=== PATIENT | female | born 1965 | race Caucasian/White ===

== ENCOUNTER 2018-07-07 11:13 | Emergency (ER) | payer BC, OTHER ==
[~2018-07-07] VITALS: Ht 162.6 cm; Wt 115.0 kg
[~2018-07-07 11:13] MED LIST: ALBU8.5H4 IH; BUSP10TA11 PO; DULO-31 PO; EST1T PO; GABA-338 PO; NORCO10T PO
[2018-07-07 11:46] LABS: BASOPHILS # (AUTO) 0.1 X10'3 (0-0.2); BASOPHILS % (AUTO) 1.1 % (0-1); EOSINOPHILS # (AUTO) 0.2 X10'3 (0-0.9); EOSINOPHILS % (AUTO) 2.4 % (0-6); HEMATOCRIT 40.6 % (35.0-45.0); LYMPHOCYTES # (AUTO) 3.1 X10'3 (1.1-4.8); LYMPHOCYTES % (AUTO) 41.2 % (21-51); MEAN CORPUSCULAR HEMOGLOBIN 32.4 PG (27.0-31.0); MEAN CORPUSCULAR HGB CONC 34.5 % (33.0-36.5); MEAN CORPUSCULAR VOLUME 93.8 FL (78-98); MEAN PLATELET VOLUME 7.6 FL (7.4-10.4); MONOCYTES # (AUTO) 0.5 X10'3 (0-0.9); MONOCYTES % (AUTO) 6.2 % (2-12); NEUTROPHILS # (AUTO) 3.7 X10'3 (1.8-7.7); NEUTROPHILS % (AUTO) 49.1 % (42-75); PLATELET COUNT 314 X10'3 (140-440); RED BLOOD COUNT 4.33 X10'6 (4.20-5.60); RED CELL DISTRIBUTION WIDTH 12.6 % (11.5-14.5); WHITE BLOOD COUNT 7.5 X10'3 (4.5-11.0)
[2018-07-07 11:57] LABS: PARTIAL THROMBOPLASTIN TIME 25 SECONDS (22-32)
[2018-07-07 12:02] LABS: ALANINE AMINOTRANSFERASE 26 U/L (12-78); ALBUMIN/GLOBULIN RATIO 1.2 (1.1-1.5); ALKALINE PHOSPHATASE 65 IU/L (46-116); ANION GAP 11 (8-16); ASPARTATE AMINO TRANSFERASE 25 U/L (10-37); BILIRUBIN,TOTAL 0.2 MG/DL (0.1-1.0); BLOOD UREA NITROGEN 13 MG/DL (7-18); BUN/CREATININE RATIO 11.3 (6.6-38.0); CALCIUM 9.2 MG/DL (8.5-10.1); CHLORIDE 104 MMOL/L (99-107); CREATININE 1.15 MG/DL (0.40-0.90); GLUCOSE 97 MG/DL (70-104); SODIUM 141 MMOL/L (135-145); TOTAL CARBON DIOXIDE 25.6 MMOL/L (24-32); TOTAL PROTEIN 7.4 G/DL (6.4-8.2); eGFR 49 ML/MIN
[2018-07-07 12:46] VITALS: BP 103/63
== END 2018-07-07 12:53 | disposition home or self-care (01) ==
LOC: ER 11:14
DX: R00.2 Palpitations (principal); M19.90 Unspecified osteoarthritis, unspecified site; G89.29 Other chronic pain; Z90.710 Acquired absence of both cervix and uterus; Z98.890 Other specified postprocedural states; Z88.5 Allergy status to narcotic agent; Z88.6 Allergy status to analgesic agent; Z88.1 Allergy status to other antibiotic agents; Z79.899 Other long term (current) drug therapy
CPT/HCPCS: 36415; 71045; 80053; 84484; 85025; 85610; 85730; 93005; 99285

== ENCOUNTER 2020-12-20 12:17 | Emergency (ER) | payer BC, MEDICAID ==
[~2020-12-20] VITALS: Ht 162.6 cm; Wt 105.5 kg
[2020-12-20] MEDS ORDERED: LORazepam 1 MG tablet PO ONE (12:40)
[2020-12-20 13:14] LABS: BASOPHILS # (AUTO) 0.1 X10'3 (0-0.2); BASOPHILS % (AUTO) 1.3 % (0-1); EOSINOPHILS # (AUTO) 0.1 X10'3 (0-0.9); EOSINOPHILS % (AUTO) 2.3 % (0-6); LYMPHOCYTES # (AUTO) 2.2 X10'3 (1.1-4.8); LYMPHOCYTES % (AUTO) 37.4 % (21-51); MEAN CORPUSCULAR HEMOGLOBIN 32.1 PG (27.0-31.0); MEAN CORPUSCULAR HGB CONC 33.3 g/dL (33.0-36.5); MEAN CORPUSCULAR VOLUME 96.4 FL (78-98); MEAN PLATELET VOLUME 8.3 FL (7.4-10.4); MONOCYTES # (AUTO) 0.4 X10'3 (0-0.9); MONOCYTES % (AUTO) 7.7 % (2-12); NEUTROPHILS % (AUTO) 51.3 % (42-75); PLATELET COUNT 260 X10'3 (140-440); RED BLOOD COUNT 4.35 X10'6 (4.20-5.60); WHITE BLOOD COUNT 5.8 X10'3 (4.5-11.0)
[2020-12-20 13:26] LABS: ALANINE AMINOTRANSFERASE 19 U/L (12-78); ALBUMIN 3.8 G/DL (3.4-5.0); ALBUMIN/GLOBULIN RATIO 1.1 (1.1-1.5); ALKALINE PHOSPHATASE 65 IU/L (46-116); ANION GAP 7 (8-16); ASPARTATE AMINO TRANSFERASE 16 U/L (10-37); BILIRUBIN,TOTAL 0.4 MG/DL (0.1-1.0); BLOOD UREA NITROGEN 12 MG/DL (7-18); BUN/CREATININE RATIO 11.1 (6.6-38.0); CALCIUM 9.1 MG/DL (8.5-10.1); CHLORIDE 106 MMOL/L (99-107); CREATININE 1.08 MG/DL (0.40-0.90); GLUCOSE 89 MG/DL (70-104); POTASSIUM 4.1 MMOL/L (3.5-5.1); SODIUM 140 MMOL/L (135-145); TOTAL CARBON DIOXIDE 27.1 MMOL/L (24-32); TOTAL PROTEIN 7.2 G/DL (6.4-8.2); eGFR 53 ML/MIN
[2020-12-20 13:32] LABS: URINE HCG NEGATIVE (NEG)
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
[2020-12-20 13:41] LABS: ETHANOL < 0.010 GM/DL (0.0-0.010)
[2020-12-20 13:46] LABS: URINE AMPHETAMINE SCREEN NEGATIVE (Neg); URINE BARBITUATE SCREEN NEGATIVE (Neg); URINE BENZODIAZEPINES SCREEN NEGATIVE (Neg); URINE CANNABINOID SCREEN NEGATIVE (Neg); URINE COCAINE SCREEN NEGATIVE (Neg); URINE METHADONE SCREEN NEGATIVE (Neg); URINE OPIATE SCREEN POSITIVE (Neg); URINE PHENCYCLIDINE SCREEN NEGATIVE (Neg)
[2020-12-20 13:49] LABS: CLARITY,URINE CLEAR (Clear); COLOR,URINE STRAW (Yellow); GLUCOSE, URINE NEGATIVE (Neg); KETONES,URINE NEGATIVE (Neg); LEUKOCYTE ESTERASE ,URINE NEGATIVE (Neg); NITRITES, URINE NEGATIVE (Neg); OCCULT BLOOD,URINE NEGATIVE (Neg); PROTEIN,URINE NEGATIVE (Neg)
[2020-12-20 13:55] LABS: UA COLLECTION TYPE CLN CATCH MIDSTREAM
[2020-12-20] MEDS ORDERED: BACL-11 PO (18:42)
[2020-12-20] MEDS ORDERED: TOP100T PO (18:42)
[2020-12-20] MEDS ORDERED: QUET25TA PO (18:42)
[2020-12-20] MEDS ORDERED: BUS15T PO (18:42)
[2020-12-20] MEDS ORDERED: HYDR-3972 PO (18:42)
[2020-12-20] MEDS ORDERED: GABA-530 PO (18:42)
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
[2020-12-20] MEDS ORDERED: nicotine 21mg patch - 24 hr TD ONE (19:15)
--- NOTE | 2020-12-20 19:22 | NUR ---
PT states she has a HX of Bipolar, PTSD, depression, borderline personality d/o, and anxiety. She has a HX of suidide attempts, the last one being in Addendum: 12/20/20 at 1923 by RUBIO 2009. She has had suicidal thoughts on and off for years.
[2020-12-20] MEDS: HYDROcodone/acetaminophen 10/325mg tab PO PRN (19:38)
[2020-12-20] MEDS ORDERED: busPIRone 15mg tablet PO SCH (20:00)
[2020-12-20] MEDS: gabapentin 100mg capsule PO SCH (20:31)
[2020-12-20] MEDS: busPIRone 15mg tablet PO SCH (20:32)
[2020-12-20] MEDS: topiramate 100mg tablet PO SCH (20:32)
[2020-12-20] MEDS: QUEtiapine 25mg tablet PO SCH (20:33)
[2020-12-20] MEDS: baclofen 10mg tablet PO SCH (20:33)
--- NOTE | 2020-12-20 20:39 | NUR ---
[facility] assessed pt at bedside, 5150 was written/ upheld
--- NOTE | 2020-12-20 23:33 | NUR ---
PT is asleep in bed RR WNL
--- NOTE | 2020-12-21 02:00 | NUR ---
Pt asleep on back RR even and unlabored.
[2020-12-21] MEDS: HYDROcodone/acetaminophen 10/325mg tab PO PRN ×3 (04:19→20:08)
--- NOTE | 2020-12-21 04:33 | NUR ---
Pt up to use the restroom, she states she is having "really bad lower back pain." HARMAN johnston utilized
--- NOTE | 2020-12-21 06:24 | NUR ---
Patient up to the bathroom. No distress noted.
--- NOTE | 2020-12-21 08:01 | NUR ---
Patient sitting up eating breakfast in bed. Will continue to monitor.
[2020-12-21] MEDS: duloxetine 30mg CAPSULE.DR PO SCH (08:14)
[2020-12-21] MEDS: gabapentin 100mg capsule PO SCH ×3 (08:15→19:58)
[2020-12-21] MEDS: busPIRone 15mg tablet PO SCH ×2 (08:15→19:59)
--- NOTE | 2020-12-21 09:44 | NUR ---
[facility] here to question patient, patient went back to sleep.
--- NOTE | 2020-12-21 10:22 | NUR ---
Patient called her daughter and was tearful. Reinforces idea of harm to others, and if the opportunity presents itself she would harm herself. Warm blankets applied and sat with her while she cried. Patient appears depressed with flat affect.
--- NOTE | 2020-12-21 11:27 | NUR ---
Patient's daughter here to visit.
[2020-12-21] MEDS ORDERED: hydrOXYzine 25 MG tablet PO ONE (12:10)
--- NOTE | 2020-12-21 12:11 | NUR ---
pt requested ativan tablet for anxiety. states she is internally anxious and needs something. Message relayed to Dr Espinosa, states will place order for a medication to help.
--- NOTE | 2020-12-21 12:45 | NUR ---
Patient attempted to run from unit. Security was called and patient was brought back to his room by staff.
--- NOTE | 2020-12-21 15:36 | NUR ---
Patient sleeping on left side. Respirations are even and nonlabored.
--- NOTE | 2020-12-21 18:05 | NUR ---
REPORT RECIEVED FROM SAMANTHA RN , PATIENT EATING DINNER AT THIS TIME NO COMPLAINTS OR ISSUES AT THIS TIME
[2020-12-21] MEDS: topiramate 100mg tablet PO SCH (19:58)
[2020-12-21] MEDS: QUEtiapine 25mg tablet PO SCH (19:58)
[2020-12-21] MEDS: baclofen 10mg tablet PO SCH (19:59)
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
--- NOTE | 2020-12-21 22:33 | NUR ---
PATIENT AMBULATORY TO RESTROOM AT THIS TIME. NO COMPLAINTS , NO ISSUES
[2020-12-22] MEDS ORDERED: nicotine 21mg patch - 24 hr TD ONE (07:25)
[2020-12-22] MEDS: busPIRone 15mg tablet PO SCH ×2 (07:33→21:08)
[2020-12-22] MEDS: HYDROcodone/acetaminophen 10/325mg tab PO PRN ×3 (07:33→19:11)
[2020-12-22] MEDS: duloxetine 30mg CAPSULE.DR PO SCH (07:34)
[2020-12-22] MEDS: gabapentin 100mg capsule PO SCH ×3 (07:35→21:08)
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
--- NOTE | 2020-12-22 08:51 | NUR ---
Pt ate all of her breakfast, read a bit, then returned to rest.
--- NOTE | 2020-12-22 12:18 | NUR ---
Pt dtr, Jovita: [phone]
--- NOTE | 2020-12-22 13:20 | NUR ---
Pt ate all of lunch. Daughter here to visit. Pt requested bath wipes, new scrubs, and hospital mesh underwear to freshen up.
--- NOTE | 2020-12-22 13:54 | NUR ---
Pt. is requesting her wallet be released to her daughter who is at bed side. Registration has been contacted to bring pt.'s daughter pt's wallet.
--- NOTE | 2020-12-22 14:51 | NUR ---
Pt's dtr just left. Had a good visitation with mom, and this RN clarified information about the hold process. Pt's dtr took the pt's wallet. This was verified with registration, as well.
--- NOTE | 2020-12-22 16:00 | NUR ---
Pt reading. Pt states she knows she needs help, and hopes there is placement found soon. States she feels so angry and like she doesn't want to wake up in the morning when she goes to bed at night. "I don't want to feel this way." Pt is tearful during this conversation.
--- NOTE | 2020-12-22 16:00 | NUR ---
Salbador villanueva in [facility] - 12/22/20 at 1626 by [place] Pt r
--- NOTE | 2020-12-22 16:41 | NUR ---
Pt states if her son, Jassi, calls that she does not want to talk to him. We can update him on her condition but just tell him she is "sleeping so as to avoid the phone call."
--- NOTE | 2020-12-22 18:31 | NUR ---
Nicotine patch removed by pt.
[2020-12-22] MEDS: baclofen 10mg tablet PO SCH (21:08)
[2020-12-22] MEDS: topiramate 100mg tablet PO SCH (21:09)
[2020-12-22] MEDS: QUEtiapine 25mg tablet PO SCH (21:10)
[2020-12-23] MEDS: HYDROcodone/acetaminophen 10/325mg tab PO PRN ×3 (06:13→20:08)
--- NOTE | 2020-12-23 08:38 | NUR ---
Estephania from [facility] given report for possible placement.
[2020-12-23] MEDS: duloxetine 30mg CAPSULE.DR PO SCH (08:44)
[2020-12-23] MEDS: busPIRone 15mg tablet PO SCH ×2 (08:44→20:08)
[2020-12-23] MEDS: gabapentin 100mg capsule PO SCH ×3 (08:46→20:07)
--- NOTE | 2020-12-23 16:38 | NUR ---
pt is sleeping
--- NOTE | 2020-12-23 19:20 | NUR ---
One to one with the patient and update her on the plan of care for her. She stated psychiatrically she is not feeling any better than on admit. She is continuing to have suicidal thoughts and homicidal thoughts that are not less intense than on admit. She stated that she does have borderline personality disorder and she has been working with a therapist.
[2020-12-23] MEDS: topiramate 100mg tablet PO SCH (20:07)
[2020-12-23] MEDS: baclofen 10mg tablet PO SCH (20:08)
[2020-12-23] MEDS: QUEtiapine 25mg tablet PO SCH (20:08)
[2020-12-23 20:27] VITALS: BP 96/53
[2020-12-24] MEDS ORDERED: nicotine 14mg patch - 24hr TD ONE (08:00)
== END 2020-12-23 20:33 ==
LOC: ER 12:18
DX: R45.851 Suicidal ideations (principal); Z20.822 Contact with and (suspected) exposure to COVID-19; R45.850 Homicidal ideations; M19.90 Unspecified osteoarthritis, unspecified site; G89.29 Other chronic pain; Z90.710 Acquired absence of both cervix and uterus; Z98.890 Other specified postprocedural states; Z88.5 Allergy status to narcotic agent; Z88.8 Allergy status to other drugs, medicaments and biological substances; Z88.1 Allergy status to other antibiotic agents; Z79.899 Other long term (current) drug therapy
CPT/HCPCS: 36415; 80053; 80305; 80320; 81003; 81025; 84443; 85025; 87491; 87591; 87635; 99285; C9803; Q0177